=== PATIENT | female | born 1935 ===

== ENCOUNTER 2017-09-26 08:26 | Outpatient (CLI) | payer OTHER ==
[~2017-09-26] VITALS: Ht 160 cm; Wt 61.2 kg
== END 2017-09-26 08:45 | disposition home or self-care (01) ==
LOC: OFIC 805 08:26
DX: H61.21 Impacted cerumen, right ear (principal); K21.9 Gastro-esophageal reflux disease without esophagitis; H90.41 Sensorineural hearing loss, unilateral, right ear, with unrestricted hearing on the contralateral side; J39.2 Other diseases of pharynx

== ENCOUNTER 2017-10-10 08:43 | Outpatient (CLI) | payer OTHER ==
[~2017-10-10] VITALS: Ht 152.4 cm; Wt 61.2 kg
== END 2017-10-10 09:00 | disposition home or self-care (01) ==
LOC: OFIC 805 08:43
DX: H61.21 Impacted cerumen, right ear (principal)

== ENCOUNTER 2018-05-05 11:49 | Emergency (ER) | payer OTHER ==
[~2018-05-05] VITALS: Ht 160 cm; Wt 59.0 kg
[2018-05-05] MEDS ORDERED: METFORMIN HCL500 MG (12:34)
[2018-05-05] MEDS ORDERED: SEROQUEL50 MG (12:34)
[2018-05-05] MEDS ORDERED: PROTONIX40 M1 (12:35)
[2018-05-05] MEDS ORDERED: HYZAAR 100-12.1 EACH (12:35)
[2018-05-05] MEDS ORDERED: PEPCID20 MG (12:35)
[2018-05-05] MEDS ORDERED: ZANTAC300 MG (12:35)
[2018-05-05] MEDS ORDERED: ASPIR 8181 MG (12:35)
[2018-05-05] MEDS ORDERED: VITAMIN B122500 MC1 (12:36)
== END 2018-05-05 15:53 | disposition home or self-care (01) ==
LOC: ER 11:49
DX: S60.222A Contusion of left hand, initial encounter (principal); W18.09XA Striking against other object with subsequent fall, initial encounter; Y93.89 Activity, other specified; Y92.098 Other place in other non-institutional residence as the place of occurrence of the external cause; Y99.8 Other external cause status

== ENCOUNTER 2018-11-28 08:29 | Emergency (ER) | payer OTHER ==
[~2018-11-28] VITALS: Ht 152.4 cm; Wt 59.0 kg
[~2018-11-28 08:29] MED LIST: ASPIR 8181 MG; HYZAAR 100-12.1 EACH; METFORMIN HCL500 MG; PEPCID20 MG; PROTONIX40 M1; SEROQUEL50 MG; VITAMIN B122500 MC1; ZANTAC300 MG
[2018-11-28] MEDS ORDERED: CRESTOR20 MG (08:51)
[2018-11-28] MEDS ORDERED: RIVASTIGMINE4.5 MG (08:52)
== END 2018-11-28 12:22 | disposition home or self-care (01) ==
LOC: ER 08:29
DX: B34.9 Viral infection, unspecified (principal); R42 Dizziness and giddiness; J11.1 Influenza due to unidentified influenza virus with other respiratory manifestations

== ENCOUNTER 2020-09-09 13:57 | Outpatient (CLI) | payer OTHER ==
[~2020-09-09 13:57] MED LIST changes: +CRESTOR20 MG; +RIVASTIGMINE4.5 MG
== END 2020-09-09 14:26 | disposition home or self-care (01) ==
LOC: OFIC 805 13:57
PROVIDERS: ATTEND Otolaryngology Otology & Neurotology
DX: H61.23 Impacted cerumen, bilateral (principal)